=== PATIENT | male | born 1995 ===

== ENCOUNTER 2017-02-07 15:56 | Emergency (ER) | payer BC ==
[2017-02-07 16:28] VITALS: BP 120/80
--- NOTE | 2017-02-07 17:16 | RAD ---
INDICATION: Intracranial injury COMPARISON: None TECHNIQUE: Noncontrast axial source images were acquired from the skull base to the vertex. FINDINGS: Ventricles/sulci: The ventricles and cisterns are normal in size and configuration for age. Brain parenchyma: There is no focal parenchymal finding, evidence of intracranial mass, or intracranial mass effect. Intracranial hemorrhage:None. Extra-axial spaces: There are no abnormal extra axial fluid collections or evidence of extra-axial mass. Calvarium: There is no calvarial fracture or other calvarial abnormality. Scalp: There is no evidence of scalp or extracalvarial soft tissue abnormality. Paranasal sinuses/mastoid: There is ethmoid sinusitis. Other: None. IMPRESSION: No acute intracranial findings. Ethmoid sinusitis
--- NOTE | 2017-02-13 22:17 | ED ---
Eleazar Leos Salem, scribed for Montrell Henry MD on 02/07/17 at 1610 . Head Injury - HPI Summary HPI Summary: Patient is a 21 y/o male who presents with a head injury since yesterday. He states he was playing basketball when he was elbowed in the back of the head ( behind his right ear). He denies LOC, but reports he had trouble remembering two peoples names and was repeating himself after the incident. He also reports he had a headache, a subjective fever, and felt fuzzy. Pt denies N/V or neck pain. 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 He states he had follow up CT scans after the hemorrhage in [place]. - History Of Current Complaint Chief Complaint: EDHeadInjury Stated Complaint: HEAD INJURY Time Seen by Provider: 02/07/17 16:03 Hx Obtained From: Patient Mechanism Of Injury: Blunt Trauma Onset/Duration: Started Days Ago - 1 day., Still Present Onset of Pain: Immediate Severity Currently: Moderate Severity Initially: Moderate Pain Intensity: 3 Pain Scale Used: 0-10 Numeric Location of Head Injury: Temporal - Right. Associated Signs And Symptoms: Fever, Headache, Other: - Feeling fuzzy. - Allergies/Home Medications Allergies/Adverse Reactions: Allergies Allergy/AdvReac Type Severity Reaction Status Date / Time No Known Allergies Allergy Verified 02/07/17 16:12 PMH/Surg Hx/FS Hx/Imm Hx Previously Healthy: Yes Infectious Disease History: Denies: Traveled Outside the [place] in Last 30 Days - Family History Known Family History: Positive: Other - No CVA. Negative: Hypertension - Social History Alcohol Use: Weekly Hx Substance Use: No Substance Use Type: Reports: None Hx Tobacco Use: No Smoking Status (MU): Never Smoked Tobacco Review of Systems Positive: Fever - Subjective. , Other - [place] fuzzy. ENT: Other - No neck pain. Negative: Vomiting, Nausea Neurological: Other - No LOC. Trouble remembering two peoples names and repeating self. Positive: Headache All Other Systems Reviewed And Are Negative: Yes Physical Exam Triage Information Reviewed: Yes Vital Signs On Initial Exam: Initial Vitals Temp Pulse Resp BP Pulse Ox 98.4 F 60 16 121/73 100 02/07/17 15:57 02/07/17 15:57 02/07/17 15:57 02/07/17 15:57 02/07/17 15:57 Vital Signs Reviewed: Yes Appearance: Positive: Well-Appearing Skin: Positive: Warm Head/Face: Positive: Normal Head/Face Inspection Eyes: Positive: Normal, EOMI, JORGE, Other: - no photophobia ENT: Positive: Normal ENT inspection, Other - no nuchal rigidity Neck: Positive: Supple Respiratory/Lung Sounds: Positive: Clear to Auscultation, Breath Sounds Present Cardiovascular: Positive: Normal, RRR. Negative: Murmur Abdomen Description: Positive: Nontender Musculoskeletal: Positive: Normal, Strength/ROM Intact Neurological: Positive: Normal, Sensory/Motor Intact, Alert, Oriented to Person Place, Time, CN Intact II-III Psychiatric: Positive: Normal Diagnostics - Vital Signs Vital Signs Temp Pulse Resp BP Pulse Ox 02/07/17 15:57 98.4 F 60 16 121/73 100 - Laboratory Lab Statement: Any lab studies that have been ordered have been reviewed, and results considered in the medical decision making process. - CT BRAIN CT Interpretation Completed By: Radiologist - IMPRESSION: No acute intracranial findings. Ethmoid sinusitis. Re-Evaluation - Re-Evaluation First Eval Re-Evaluation Time: 18:13 Head Injury Course/Dx Course Of Treatment: 21 y/o male presents with head injury. He reports a headache, a subjective fever, and feeling fuzzy, but denies LOC, N/V, or neck pain. CT reveals, per radiology, no acute intracranial findings. Ethmoid sinusitis. Pt is in good condition and will be DC'd. - Diagnoses Provider Diagnoses: Concussion, Sinusitis Discharge - Discharge Plan Condition: Good Disposition: HOME Prescriptions: Amoxicillin/Clavulanate TAB* [Augmentin TAB 875*] 875 mg PO BID #20 tab Patient Education Materials: Sinusitis (ED), Concussion (ED) Referrals: [facility] CHASE Crawley [Primary Care Provider] - The documentation as recorded by the Eleazar knapp Salem accurately reflects the service I personally performed and the decisions made by , Mnotrell Henry MD.
== END 2017-02-07 18:25 | disposition home or self-care (01) ==
LOC: ED 15:56
DX: S06.0X0A Concussion without loss of consciousness, initial encounter (principal); J32.9 Chronic sinusitis, unspecified; R50.9 Fever, unspecified; R51 Headache; W50.0XXA Accidental hit or strike by another person, initial encounter; Y93.67 Activity, basketball; Y92.9 Unspecified place or not applicable; Y99.9 Unspecified external cause status
CPT/HCPCS: 70450; 99281